=== PATIENT | female | born 1965 | race Caucasian/White ===

== ENCOUNTER 2017-05-23 13:06 | Outpatient (CLI) | payer BC ==
[2017-05-23 14:05] LABS: Bilirubin Negative (Negative); Blood, Urine Negative (Negative); Clarity CLEAR (Clear); Glucose, Urine (Dipstick) Negative (Negative); Leukocyte Negative (Negative); Nitrite Negative (Negative); Protein, Urine (Dipstick) Negative (Neg-Trace); Specific Gravity, Urine 1.008 (1.002-1.036); Urobilinogen 0.2 mg/dL (0.2-1.0); pH, Urine 6.5 (5.0-9.0)
[2017-05-23 14:06] LABS: Anion Gap 12 mmol/L (10-20); BUN (Urea Nitrogen) 8 mg/dL (9.8-20.1); Calc. Creatinine Clearance 0 mL/min (70-130); Carbon Dioxide 27 mmol/L (22-29); Chloride 105 mmol/L (98-107); Estimated GFR-MDRD 75; Glucose 94 mg/dL (70-105); Potassium 4.5 mmol/L (3.5-5.1); Sodium 139 mmol/L (136-145)
[2017-05-23 14:44] LABS: Bacteria/HPF None Seen HPF (None Seen); Hyaline Casts/LPF NONE SEEN LPF (0-3 Hyaline); RBC/HPF None Seen HPF (0-3); Squamous Epithelial 0-3 HPF (0-3); WBC/HPF 0-3 HPF (0-3)
--- NOTE | 2017-05-23 15:08 | RAD ---
AP ABDOMINAL RADIOGRAPH: Date: 05-23-17 History: Renal stone. Comparison: 10-10-16 FINDINGS: Again noted is the calcification overlying the inferior pole left renal shadow. No additional suspici ous calcifications are seen. Phlebolith overlie the lower aspect of the pelvis bilaterally. Bowel gas pattern is nonspecific. Mild degenerative changes are seen in the spine. IMPRESSION: Stable left nephrolithiasis. POS: [facility]
== END 2017-05-23 13:07 | disposition home or self-care (01) ==
LOC: RAD 13:06
PROVIDERS: ATTEND Urology
DX: N20.0 Calculus of kidney (principal)
CPT/HCPCS: 36415; 74018; 80048; 81001; 87086

== ENCOUNTER 2017-09-25 09:11 | Outpatient (CLI) | payer BC | END 2017-09-25 09:12 | disposition home or self-care (01) | LOC: BICMAMMO 09:11 | PROVIDERS: ATTEND Internal Medicine Medical Oncology | DX: Z08 Encounter for follow-up examination after completed treatment for malignant neoplasm (principal); Z85.3 Personal history of malignant neoplasm of breast | CPT/HCPCS: G0279 ==

== ENCOUNTER 2017-10-01 09:38 | Outpatient (CLI) | payer BC ==
--- NOTE | 2017-10-01 11:06 | RAD ---
AP ABDOMINAL RADIOGRAPH: DATE: 10/01/17. HISTORY: Renal stone. COMPARISON: 05/23/17. FINDINGS: There is a stable calcification overlying the inferior pole left renal shadow. No additional suspici ous calcifications are seen. Calcifications overlie the pelvis which are again likely related to phl eboliths. The bowel gas pattern is nonspecific. There has been no interval change from prior exam. IMPRESSION: Stable left nephrolithiasis. POS: [facility]
== END 2017-10-01 09:39 | disposition home or self-care (01) ==
LOC: RAD 09:38
PROVIDERS: ATTEND Internal Medicine Medical Oncology
DX: N20.0 Calculus of kidney (principal)
CPT/HCPCS: 74018; 80048; 81001; 87086

== ENCOUNTER 2017-12-24 09:02 | Outpatient (CLI) | payer BC | END 2017-12-24 09:03 | disposition home or self-care (01) | LOC: BICMAMMO 09:02 | PROVIDERS: ATTEND Internal Medicine Medical Oncology | DX: Z13.820 Encounter for screening for osteoporosis (principal); N95.9 Unspecified menopausal and perimenopausal disorder; C50.419 Malignant neoplasm of upper-outer quadrant of unspecified female breast | CPT/HCPCS: 77080 ==

== ENCOUNTER 2018-01-21 11:33 | Outpatient (CLI) | payer BC ==
--- NOTE | 2018-01-21 13:00 | RAD ---
ABDOMEN 1 VIEW: COMPARISON: 10/01/17. HISTORY: Renal calculi. FINDINGS: The previously noted calcification projects in the lower pole left kidney is less evident on the curr ent exam. Bowel gas pattern is nonspecific. Calcifications of the left and right hemipelvis are pre sumed to be phleboliths. IMPRESSION: No radiographic evidence of a calcification noted over the lower pole of the left kidney. POS: [facility]
== END 2018-01-21 11:34 | disposition home or self-care (01) ==
LOC: RAD 11:33
PROVIDERS: ATTEND Urology
DX: N20.0 Calculus of kidney (principal); N13.5 Crossing vessel and stricture of ureter without hydronephrosis
CPT/HCPCS: 74018

== ENCOUNTER 2018-03-06 10:56 | Outpatient (CLI) | payer BC ==
--- NOTE | 2018-03-06 13:56 | CT ---
NONCONTRAST ENHANCED CT IMAGES OF ABDOMEN AND PELVIS: HISTORY: Patient with a history of renal calculi. Current stone in the left kidney. Evaluation for interval change. FINDINGS: Noncontrast-enhanced CT images of the abdomen and pelvis were obtained. Comparison is made to a prev ious exam from 09/18/2016. The lung bases are unremarkable. No evidence of free intraperitoneal air seen. The liver, pancreas, and gallbladder are unremarkable. The spleen is stable with a calcified granulo ma seen. Adrenal glands unremarkable. No evidence of periaortic lymphadenopathy seen. No dilated loops of small bowel seen. The colon contains a moderate amount of stool. The right kidney is unremarkable with no evidence of masses or lesions or calculi. No evidence of hy dronephrosis seen. The left kidney demonstrates again a lower pole left renal calculus measuring approximately 7 x 5.5 m m. This is slightly larger than on the previous measurement where the same calculus measured approxi mately 3.9 x 7.0 mm. There continues to be some calyceal left-sided ureteral dilatation and prominen ce of the left renal pelvis. No definite evidence of left ureteral dilatation seen. Disk desiccation and disk space height loss and irregularity is seen involving the inferior end plate of L5 and superior end plate of S1. IMPRESSION: Slightly larger lower pole left renal calculus. No additional calculi seen. POS: [facility]
== END 2018-03-06 10:57 | disposition home or self-care (01) ==
LOC: BICCT 10:56
PROVIDERS: ATTEND Urology
DX: N20.0 Calculus of kidney (principal)
CPT/HCPCS: 74176

== ENCOUNTER 2018-03-25 06:05 | Day surgery (SDC) | payer BC ==
[2018-03-22 08:59] VITALS: BMI 24.0
[2018-03-25] MEDS ORDERED: Gentamicin 80 MG/2 ML VIAL ONE (06:34)
[2018-03-25] MEDS ORDERED: Bupivacaine/Epinephrine 0.25% 30 ML VIAL ONE ×2 (06:34)
[2018-03-25] MEDS ORDERED: Fentanyl 100 MCG/2 ML VIAL ONE ×3 (06:48→08:44)
[2018-03-25] MEDS ORDERED: Midazolam HCl 2 mg/2 ml Vial ONE (06:48)
[2018-03-25] MEDS ORDERED: Heparin 5,000 UNITS/ML VIAL ONE (07:14)
[2018-03-25] MEDS ORDERED: CEFAZOLIN 2 GM/50 ML BAG ONE (07:14)
--- NOTE | 2018-03-25 08:48 | OP ---
PREOPERATIVE DIAGNOSIS: Right breast cancer. POSTOPERATIVE DIAGNOSIS: Right breast cancer. PROCEDURE PERFORMED: Exchange of right tissue stress analyst for permanent breast prosthesis with capsular work ([id number]). OPERATIVE FINDINGS: Right breast implant. [place] reference #[id number], serial [id number]. OPERATIVE PROCEDURE: Following induction of adequate anesthesia, the patient was prepped and draped in the usual sterile fashion in the supine position. Her existing inframammary crease scar was incis ed. Dissection was carried sharply down through subcutaneous tissue to identify the underlying expan tracee, which was deflated and removed. The pocket was then opened from 2 o'clock to 12 o'clock to 10 o 'clock to accommodate the implant. The pocket was copiously irrigated and inspected for meticulous h emostasis prior to placing of a sizer to determine what implant would give the closest symmetry to th e expanded breast. The above was chosen. A skin barrier dressing was placed. The pocket was irriga татьяна with antibiotic solution as well as Betadine solution prior to placement of the above implant aft er donning fresh gloves. The pocket was reinspected for hemostasis prior to closure with 3-0 PDS sut ure followed by 3-0 Monocryl suture. The patient tolerated the procedure well.
[2018-03-25] MEDS ORDERED: HYDROcodone/Acetaminophen 5/325 mg Tablet ONE (09:44)
--- NOTE | 2018-03-26 08:48 | EKG ---
Test Reason : PREOP Blood Pressure : / mmHG Vent. Rate : 059 BPM Atrial Rate : 059 BPM P-R Int : 128 ms QRS Dur : 082 ms QT Int : 446 ms P-R-T Axes : 057 047 048 degrees QTc Int : 441 ms Sinus bradycardia Otherwise normal ECG No previous ECGs available Confirmed by DR. Oscar FLOR ([id number]) on 03/26/2018 8:48:18 AM Referred By: GARFIELD Confirmed By:DR. Oscar FLOR
== END 2018-03-25 10:41 | disposition home or self-care (01) ==
LOC: SDC 06:05
PROVIDERS: ATTEND Plastic Surgery
PROC: 0HPT0JZ Removal of Synthetic Substitute from Right Breast, Open Approach (ICD-10-PCS; principal; 2018-03-25)
PROC: 0HRT0JZ Replacement of Right Breast with Synthetic Substitute, Open Approach (ICD-10-PCS; principal; 2018-03-25)
DX: Z45.811 Encounter for adjustment or removal of right breast implant (principal); F17.210 Nicotine dependence, cigarettes, uncomplicated; I10 Essential (primary) hypertension; M19.90 Unspecified osteoarthritis, unspecified site; E66.3 Overweight; Z68.28 Body mass index [BMI] 28.0-28.9, adult; Z79.899 Other long term (current) drug therapy; Z88.2 Allergy status to sulfonamides; Z90.11 Acquired absence of right breast and nipple
CPT/HCPCS: 93005; 93010; 96374; J0131; J1580; J1644; J2250; J3010; J3370; J3490; L8600

== ENCOUNTER 2018-04-02 09:31 | Outpatient (CLI) | payer BC ==
[2018-04-02 10:57] LABS: Mean Corpuscular Hemoglobin 31.8 pg (27.0-31.0); Mean Corpuscular Volume 99.5 fL (78.0-98.0); Mean Platelet Volume 7.3 fL (7.4-10.4); Platelet Count 258 thou/uL (130-400); RBC Distribution Width 12.5 % (11.5-14.5); White Blood Cell (WBC) Count 6.5 thou/uL (4.8-10.8)
[2018-04-02 11:10] LABS: INR-International Normal Ratio 0.9; PTT 31.4 SEC (22.9-36.1); Prothrombin Time 11.9 SEC (12.0-14.7)
[2018-04-02 11:13] LABS: Anion Gap 12 mmol/L (10-20); BUN (Urea Nitrogen) 4 mg/dL (9.8-20.1); Calc. Creatinine Clearance 0 mL/min (70-130); Calcium 9.5 mg/dL (7.8-10.44); Carbon Dioxide 27 mmol/L (22-29); Chloride 105 mmol/L (98-107); Estimated GFR-MDRD 83; Glucose 86 mg/dL (70-105); Potassium 4.6 mmol/L (3.5-5.1); Sodium 139 mmol/L (136-145)
[2018-04-02 11:38] LABS: Bilirubin Negative (Negative); Blood, Urine Negative (Negative); Clarity CLEAR (Clear); Glucose, Urine (Dipstick) Negative (Negative); Leukocyte Negative (Negative); Nitrite Negative (Negative); Protein, Urine (Dipstick) Negative (Neg-Trace); Specific Gravity, Urine 1.007 (1.002-1.036); Urobilinogen 0.2 mg/dL (0.2-1.0); pH, Urine 6.5 (5.0-9.0)
[2018-04-02 11:46] LABS: Bacteria/HPF None Seen HPF (None Seen); Hyaline Casts/LPF 0-3 HYALINE CAST LPF (0-3 Hyaline); RBC/HPF 0-3 HPF (0-3); Squamous Epithelial None Seen HPF (0-3); WBC/HPF None Seen HPF (0-3)
== END 2018-04-02 09:32 | disposition home or self-care (01) ==
LOC: LABBT 09:31
PROVIDERS: ATTEND Urology
DX: Z01.812 Encounter for preprocedural laboratory examination (principal); N20.0 Calculus of kidney
CPT/HCPCS: 80048; 81001; 85027; 85610; 85730; 87086

== ENCOUNTER 2018-04-17 05:54 | Day surgery (SDC) | payer BC ==
[2018-04-02 09:54] VITALS: BMI 25.2
[2018-04-17] MEDS ORDERED: Levofloxacin 500 mg/D5W 100 ml Premix Bag ONE (06:25)
[2018-04-17] MEDS ORDERED: Iothalamate Meglumine 60% 50 ML VIAL FS ONE ×2 (07:05→08:14)
[2018-04-17] MEDS ORDERED: SUGAMMADEX SODIUM 500 MG/5 ML VIAL ONE (07:20)
[2018-04-17] MEDS ORDERED: Fentanyl 100 MCG/2 ML VIAL ONE ×4 (07:20→10:16)
[2018-04-17] MEDS ORDERED: Midazolam HCl 2 mg/2 ml Vial ONE (07:22)
--- NOTE | 2018-04-17 08:30 | RAD ---
SINGLE VIEW OF THE ABDOMEN: Comparison: 01-21-18, CT abdomen/pelvis 02-04-18 History: Pre-operative radiograph with left nephrolithiasis. FINDINGS: A single view of the abdomen shows a nonspecific, nonobstructive bowel gas pattern. A 6 mm calcificat ion projects over the left renal shadow. No calcification is projected over the right renal shadow or along the course of the ureters. IMPRESSION: Left nephrolithiasis. POS: [facility]
[2018-04-17] MEDS ORDERED: Phenazopyridine HCl 97.5 MG TABLET ONE (09:24)
[2018-04-17] MEDS ORDERED: Oxybutynin 5 MG TAB ONE (09:24)
[2018-04-17] MEDS ORDERED: Meperidine HCl/PF 25 MG/ML VIAL ONE (09:31)
--- NOTE | 2018-04-17 10:24 | RAD ---
RETROGRADE URETEROGRAM INTRAOPERATIVE FLUOROSCOPY: History: Left renal stone. FINDINGS/IMPRESSION: Intraoperative fluoroscopy was provided for retrograde study as performed by Dr. Lopez. Multipl e spot fluoroscopic images show catheterization and contrast opacification of a distended left renal collecting system. Filling defect is not reliably demonstrated. Final image shows double pigtail uret eral stent in good radiographic position. POS: [facility]
[2018-04-17] MEDS ORDERED: HYDROcodone/Acetaminophen 5/325 mg Tablet ONE (10:50)
[2018-04-17] MEDS ORDERED: PROPOFOL 200 MG/20 ML VIAL ONE (16:32)
[2018-04-17] MEDS ORDERED: Dexamethasone 20 MG/5 ML VIAL ONE (16:32)
[2018-04-17] MEDS ORDERED: Ondansetron PF 4 MG/2 ML Vial ONE (16:32)
[2018-04-17] MEDS ORDERED: Lidocaine 1% PF 5 ML VIAL ONE (16:32)
--- NOTE | 2018-04-19 06:28 | OP ---
DATE OF PROCEDURE: 04/17/2018 PREOPERATIVE DIAGNOSES: 1. A 52-year-old female with history of occult left ureteropelvic junction, no significant functional obstruction on Lasix renal scan with no accessory renal vasculature on workup. 2. Left lower pole 7 mm stone. History of punctate bilateral nonobstructing renal calculi. 3. History of breast cancer. 4. Grade 3 cystocele. POSTOPERATIVE DIAGNOSES: 1. A 52-year-old female with history of occult left ureteropelvic junction, no significant functional obstruction on Lasix renal scan with no accessory renal vasculature on workup. 2. Left lower pole 7 mm stone. History of punctate bilateral nonobstructing renal calculi. 3. History of breast cancer. 4. Grade 3 cystocele. PROCEDURES PERFORMED: Cystoscopy; left retrograde pyelogram; 6 x 24 double-J ureteral stent placement; balloon dilation of the left intramural ureter, balloon dilation of left UPJ; flexible ureteroscopy; pyeloscopy; laser lithotripsy of renal calculi. ANESTHESIA: General. SPECIMENS: None. DISPOSITION: To recovery room in stable condition. INTRAOPERATIVE FINDINGS: 1. Left lower pole stone. 2. Grade 3/4cystocele. 3. Left occult UPJ. 4. Chronically dilated renal pelvis. SPECIMENS: None. INDICATIONS FOR PROCEDURE AND HISTORY: Ms. Dailey is a pleasant 52-year-old female with history of breast cancer, who was initially referred to me by Dr. Baker due to incidental mild left hydronephrosis initially noted on bone scan, workup for breast cancer. She underwent the appropriate workup for UPJ. She has a remote history of ureteroscopy and stent placement in [place]. Workup for her UPJ demonstrated no significant functional obstruction with symmetric function as the left kidney demonstrates 56% function with T one-half for 14 minutes. IVP demonstrated symmetric uptake with excretion of contrast known to be down the course of the ureter. She has had no significant flank pain of concern. We have been observing her left renal stone, however, due to interval growth, she desired to proceed with workup. I informed the patient that ureteroscopy with retrograde pyelogram would be prudent. There was just concern regarding occult UPJ, which ESWL would hinder passage of stone fragmented debris, more over the stone in the lower pole. She desired to proceed with the procedure. Urine culture is negative. Risks and complications and indications were reviewed, including but not limited to bleeding, pain, infection, injury to adjacent organs, urosepsis, stricture formation, possible secondary procedure was reviewed with her in detail and she desired to proceed. DESCRIPTION OF PROCEDURE: After informed consent was signed, the patient was taken to the operating room and placed in a dorsal lithotomy position with the genital area prepped and draped in the usual surgical sterile fashion. Broad-spectrum antibiotics were provided. Bilateral PERRI hose and SCDs were placed. A 21- Chadian cystoscope was used. Physical exam demonstrates grade 3/4 cystocele, in which manual reduction of her cystocele was required to elevate her trigone required to intubate the left UO due to deviated trigone from the cystocele. A 5-Chadian open-ended catheter was utilized for retrograde pyelogram. This did demonstrate no evidence of filling defects. Retrograde pyelogram demonstrates an inferior insertion of the UPJ with chronically dilated renal pelvis. There was no discrete area of narrowing per se, however, the UPJ insertion appears to be mildly small in caliber. With distention of contrast, I was able to opacify without significant issues. A 0.35 Sensor wire was able to be passed into the left upper pole collecting system without difficulty. At this time, using a [employer] 4 cm 12-Chadian balloon dilator, we dilated the intramural ureter. We subsequently passed the balloon dilator to the level of the UPJ as well with the wire in situ. The balloon dilator was placed at the level of the UPJ and we subsequently dilated the UPJ with 4 cm [employer] balloon dilator. After appropriate pressure dilatation, the balloon was decompressed, and using a 10-Chadian dual-lumen access sheath, a second safety wire was placed with a 0.38 Super Stiff wire. I attempted to pass an 11/13-Chadian x 28 cm navigator; however, there was some resistance at the level of the sacral inlet, therefore I did not forcibly engage. We subsequently passed the flexible ureteroscope, a disposable scope over the Super Stiff wire and we were able to pass this to the level of the UPJ for staging. I attempted to pass the flexible ureteroscope to the level of the renal pelvis as we dilated the UPJ , however, this would not pass. Therefore, we re-staged the UPJ. There was no evidence of ureteral mucosal trauma. At this time, using the ureteroscopic access, a Passport dilator was utilized through the ureteroscope, and under direct visualization, I passed another balloon dilator and dilated it to 12-Chadian. Subsequently with some negotiation, I was able to pass the flexible ureteroscope over the Super Stiff safety wire. It required some manipulation, but we gently passed this to the level of the renal pelvis. Her access was quite challenging as her cystocele hinders the passage of the scope as there was deviated trigone resulting in deviated angle, therefore, I had to manually reduce her cystoceles to straighten the ureteroscope distally. With some manipulation, I was able to finally gain access to the renal pelvis. Deflection of the ureteroscope was difficult, likely due to tortuosity resulting from cystocele distally as well as UPJ component. I was able to see the lower pole stone; however, I could not get laser fiber into the lower pole as the scope would not deflect due to deviated angle from her trigone. We were able to basket extract the stone into a more amendable treatment to the level of the renal pelvis. I attempted to laser lithotripsy the stone with 200 micron laser fiber. I did not want to use a high-flow as the stone would move and migrate to a region that was not approachable at this time. Therefore, with minimal flow, using 200 micron fiber , we laser lithotripsied the stone. It did fragment into smaller fragments, however, they deflected out of the field into the other calices, in which I was unable to optimally access to the other calices. Decision was made to terminate the procedure at this time, I was unable to retrieve the stone, although laser lithotripsied, it is smaller in caliber. I do believe she has some residual stones left; however , I cannot deflect the scope to engage her calices to identify the migration of the stone fragments for safe retrieval. We assessed the UPJ, which demonstrated no evidence of ureteral mucosal perforation. There was a subtle mucosal flap in the proximal ureter at the level of L4; however, there was no evidence of extravasation of contrast. Retrograde pyelogram was to ensure that there was no extravasation of contrast. Previous fluoroscopy did demonstrate pyelovenous backflow, this was not consistent with a perforation. I surveyed the ureter, which demonstrated no other stone nidus of concern. A 6 x 24 double-J ureteral stent was passed without difficulty. She will follow up with me next Wednesday with a KUB to assess the degree of residual stone burden. I would minimally recommend few weeks due to dilatation of her UPJ. Pending KUB, I would discuss with her regarding restaging ureteroscopy to retrieve residual stone nidus versus stent pull. She was discharged with Colace #30 100 mg one p.o. b.i.d., VESIcare 5 mg one p.o. daily #30, ciprofloxacin 500 mg for five days, Azo p.r.n. [place] 09/13/24. KUB to be obtained 1 hour prior to her appointment. Job ID: [id number] [facility]
== END 2018-04-17 12:58 | disposition home or self-care (01) ==
LOC: SDC 05:54
PROVIDERS: ATTEND Urology
PROC: 0T778DZ Dilation of Left Ureter with Intraluminal Device, Via Natural or Artificial Opening Endoscopic (ICD-10-PCS; principal; 2018-04-17)
PROC: 0TF48ZZ Fragmentation in Left Kidney Pelvis, Via Natural or Artificial Opening Endoscopic (ICD-10-PCS; principal; 2018-04-17)
DX: N20.0 Calculus of kidney (principal); N13.5 Crossing vessel and stricture of ureter without hydronephrosis; N81.10 Cystocele, unspecified; E78.5 Hyperlipidemia, unspecified; M19.90 Unspecified osteoarthritis, unspecified site; F41.9 Anxiety disorder, unspecified; Z85.3 Personal history of malignant neoplasm of breast; Z79.811 Long term (current) use of aromatase inhibitors; Z79.899 Other long term (current) drug therapy; Z88.2 Allergy status to sulfonamides
CPT/HCPCS: 74018; 74420; 96374; C1758; C1769; J1100; J1956; J2001; J2175; J2250; J2405; J2704; J3010; Q9961

== ENCOUNTER 2018-04-24 11:54 | Outpatient (CLI) | payer BC ==
--- NOTE | 2018-04-24 13:53 | RAD ---
ABDOMEN 1 VIEW: HISTORY: Renal stone. COMPARISON: 04/17/2018. FINDINGS: Visualized bowel gas pattern is nonspecific. Double pigtail stent overlies the course of the left ur eter. Small irregular calcification overlying the inferior pole of the left renal shadow is unchange d in position and appearance. Phleboliths project over the pelvis. IMPRESSION: 1. Left ureteral stent is in good radiographic position. 2. Left renal calculus appears stable. POS: [facility]
== END 2018-04-24 11:55 | disposition home or self-care (01) ==
LOC: RAD 11:54
PROVIDERS: ATTEND Urology
DX: N20.0 Calculus of kidney (principal); Z96.0 Presence of urogenital implants
CPT/HCPCS: 74018

== ENCOUNTER 2018-04-25 13:54 | Outpatient (CLI) | payer BC ==
[2018-04-25 14:42] LABS: Hemoglobin 14.8 g/dL (12.0-16.0); Mean Corpuscular HGB CONC 32.9 g/dL (32.0-36.0); Mean Corpuscular Hemoglobin 32.8 pg (27.0-31.0); Mean Corpuscular Volume 99.5 fL (78.0-98.0); Mean Platelet Volume 7.3 fL (7.4-10.4); Platelet Count 316 thou/uL (130-400); RBC Distribution Width 12.1 % (11.5-14.5); White Blood Cell (WBC) Count 7.3 thou/uL (4.8-10.8)
[2018-04-25 14:49] LABS: Bilirubin Negative (Negative); Blood, Urine Large (Negative); Clarity CLOUDY (Clear); Glucose, Urine (Dipstick) Negative (Negative); INR-International Normal Ratio 0.9; Leukocyte Large (Negative); Nitrite Negative (Negative); PTT 30.6 SEC (22.9-36.1); Protein, Urine (Dipstick) 30 mg/dL (Neg-Trace); Prothrombin Time 12.3 SEC (12.0-14.7); Specific Gravity, Urine 1.007 (1.002-1.036); Urobilinogen 0.2 mg/dL (0.2-1.0); pH, Urine 6.5 (5.0-9.0)
[2018-04-25 14:56] LABS: Bacteria/HPF None Seen HPF (None Seen); Hyaline Casts/LPF 0-3 HYALINE CAST LPF (0-3 Hyaline); Pathc Cast-AUWi Flag 0.29 (0-2.49); RBC/HPF 21-50 HPF (0-3); Squamous Epithelial 0-3 HPF (0-3)
[2018-04-25 15:09] LABS: Anion Gap 13 mmol/L (10-20); BUN (Urea Nitrogen) 5 mg/dL (9.8-20.1); Calc. Creatinine Clearance 0 mL/min (70-130); Calcium 9.8 mg/dL (7.8-10.44); Carbon Dioxide 26 mmol/L (22-29); Chloride 106 mmol/L (98-107); Estimated GFR-MDRD 82; Glucose 87 mg/dL (70-105); Potassium 4.1 mmol/L (3.5-5.1); Sodium 141 mmol/L (136-145)
== END 2018-04-25 13:55 | disposition home or self-care (01) ==
LOC: LABBT 13:54
PROVIDERS: ATTEND Urology
DX: Z01.818 Encounter for other preprocedural examination (principal); N20.0 Calculus of kidney; C50.919 Malignant neoplasm of unspecified site of unspecified female breast; N81.10 Cystocele, unspecified; N13.5 Crossing vessel and stricture of ureter without hydronephrosis
CPT/HCPCS: 80048; 81001; 85027; 85610; 85730; 87086; 93005; 93010

== ENCOUNTER 2018-05-01 05:45 | Day surgery (SDC) | payer BC ==
[2018-04-25 14:34] VITALS: BMI 25.6
[2018-05-01] MEDS ORDERED: Levofloxacin 500 mg/D5W 100 ml Premix Bag ONE (06:54)
[2018-05-01] MEDS ORDERED: Fentanyl 100 MCG/2 ML VIAL ONE ×4 (06:59→10:40)
--- NOTE | 2018-05-01 08:28 | RAD ---
ABDOMEN ONE VIEW: HISTORY: A 53-year-old female for preoperative evaluation. COMPARISON: 04/24/2018 FINDINGS: Left ureteral stent in place. Left lower pole renal calculus or small adjacent calculi. No bowel ob struction. IMPRESSION: 1. Stable kidneys, ureters, and bladder. 2. Left renal calculus. 3. Left ureteral stent. POS: [facility]
[2018-05-01] MEDS ORDERED: HYDROcodone/Acetaminophen 5/325 mg Tablet ONE (12:16)
--- NOTE | 2018-05-01 13:13 | OP ---
DATE OF PROCEDURE: 05/01/2018 PREOPERATIVE DIAGNOSES: Ms. Dailey is a 53-year-old female with history of left occult ureteropelvic junction with lower pole stone measuring 7 mm, status post left retrograde, ureteroscopy, balloon dilatation of the ureteropelvic junction, ureteroscopy, laser lithotripsy of lower pole stone. POSTOPERATIVE DIAGNOSES: Ms. Dailey is a 53-year-old female with history of left occult ureteropelvic junction with lower pole stone measuring 7 mm, status post left retrograde, ureteroscopy, balloon dilatation of the ureteropelvic junction, attempted ureteroscopy, laser lithotripsy of lower pole stone. PROCEDURE PERFORMED: Left extracorporeal shock wave lithotripsy. ANESTHESIA: LMA. COMPLICATIONS: None apparent. DISPOSITION: To recovery room in stable condition. INDICATIONS FOR PROCEDURE AND HISTORY: Ms. Dailey is a pleasant 53-year-old female with history of breast cancer, with incidental mild left hydronephrosis noted on bone scan. She underwent workup with CT angiogram, IVP Lasix, renal scan demonstrating no significant functional obstruction of concern. However, due to interval enlargement of her left lower pole stone, she desired to proceed with ureteroscopy, laser lithotripsy. We did discuss options of ESWL versus ureteroscopy, laser lithotripsy, however, she does have occult UPJ, staging of the UPJ was advised. She underwent dilation of the UPJ, underwent ureteral stent placement. Although, I was able to see the stone; however, due to tortuosity, the ureteroscope hindered by her significant cystocele and a lower pole stone moiety , I was unable to reach the stone for successful , laser lithotripsy. Therefore, she presents today for ESWL. Risks and complications and indications were reviewed including, but not limited to, bleeding, pain, infection, injury to adjacent organs, urosepsis, significant hematuria of concern. All questions were answered to her satisfaction. She desired to proceed. DESCRIPTION OF PROCEDURE: The patient was taken to the operating room, placed in a supine position. Preop KUB demonstrates again a left lower pole stone consistent with an acute infundibular angle from the ureteral stent at 45 degrees. The stone was easily visualized on fluoroscopy and using a Dornier lithotripter, we fragmented the stone using energy of 4, rate increased from 60 to 80 slowly, 2500 shocks were delivered. We intermittently fluoro'd the patient demonstrating adequate localization of shockwave, more over successful dispersion. At the end of the procedure, stone appeared to be well dispersed. She will follow up in my clinic on May 16 for stent pull under local. She was advised to obtain a KUB one day prior on May 15. She was discharged with [place] 5/325 #30, ciprofloxacin 1 p.o. b.i.d. x3 days to start one day prior to her stent pull, Azo p.r.n., Colace, and oxybutynin refill was provided. Job ID: [id number] [facility]
== END 2018-05-01 12:43 ==
LOC: SDC 05:45
PROVIDERS: ATTEND Urology
PROC: 0TF4XZZ Fragmentation in Left Kidney Pelvis, External Approach (ICD-10-PCS; principal; 2018-05-01)
DX: N20.0 Calculus of kidney (principal); N13.5 Crossing vessel and stricture of ureter without hydronephrosis; N81.10 Cystocele, unspecified; M19.90 Unspecified osteoarthritis, unspecified site; I10 Essential (primary) hypertension; E78.5 Hyperlipidemia, unspecified; F41.9 Anxiety disorder, unspecified; F17.210 Nicotine dependence, cigarettes, uncomplicated; Z85.3 Personal history of malignant neoplasm of breast; Z79.811 Long term (current) use of aromatase inhibitors; Z79.899 Other long term (current) drug therapy; Z88.2 Allergy status to sulfonamides; Z98.890 Other specified postprocedural states
CPT/HCPCS: 74018; 96374; J1956; J3010

== ENCOUNTER 2018-05-16 07:51 | Outpatient (CLI) | payer BC ==
--- NOTE | 2018-05-16 08:31 | RAD ---
AP ABDOMINAL RADIOGRAPH; Date: 05/16/18 HISTORY: Renal stone. COMPARISON: 05/11/18. FINDINGS: A double pigtail left ureteral stent remains in place, proximal portion overlying expected location of the left renal collecting system, distal portion overlying expected location of the urinary bladde r. The previously noted calculus overlying the inferior pole left renal shadow on prior exam is not d efinitely seen on this exam. No suspicious calcifications are seen along the course of the left urete ral stent. Phleboliths do overlie the pelvis. Bowel gas pattern is nonspecific. IMPRESSION: 1. Left ureteral stent in place. 2. Previously seen calculus overlying lower pole left renal collecting system is not readily identif ied on this examination; however, majority of renal shadow is obscured by bowel gas. No calculus is s een along the course of the left ureter. POS: [facility]
== END 2018-05-16 07:52 | disposition home or self-care (01) ==
LOC: RAD 07:51
PROVIDERS: ATTEND Urology
DX: N20.0 Calculus of kidney (principal); Z96.0 Presence of urogenital implants
CPT/HCPCS: 74018

== ENCOUNTER 2018-06-21 09:23 | Outpatient (CLI) | payer BC ==
--- NOTE | 2018-06-21 14:29 | NM ---
BONE SCAN: HISTORY: Malignant neoplasm of breast diagnosed in 2017. DOSE: 30.2 mCi of Technetium 99m-MDP. FINDINGS: Anterior and posterior whole body delayed images obtained. Images demonstrate some pooling of the radioisotope in the left renal collecting system compatible wi th UPJ-type obstruction. This was seen on the patient's previous CT from 03/06/2018. No significant areas of increased activity seen to suggest metastatic disease. Some activity is seen in the left jaw possibly representing dental work. IMPRESSION: No evidence of metastatic disease seen. POS: [facility]
== END 2018-06-21 09:24 | disposition home or self-care (01) ==
LOC: NM 09:23
PROVIDERS: ATTEND Internal Medicine Medical Oncology
DX: C50.919 Malignant neoplasm of unspecified site of unspecified female breast (principal); M54.6 Pain in thoracic spine
CPT/HCPCS: 78306; A9503

== ENCOUNTER 2018-09-03 07:09 | Outpatient (CLI) | payer BC ==
--- NOTE | 2018-09-03 09:25 | MRI ---
MRI LUMBAR SPINE WITH CONTRAST: HISTORY: Pain. History of breast cancer. COMPARISON: Reference is made to recent bone scan 06/21/2018 FINDINGS: Conus medullaris is normal in morphology and terminates at the L1 level. Multilevel mild bilateral degenerative facet hypertrophy is present. L1-2:Mild effacement of ventral thecal sac, due to disc osteophyte complex. Foramina are maintained L2-3:Mild effacement of ventral thecal sac due to disc osteophyte formation. Foramina are maintained L3-4:Mild central canal stenosis due to broad-based disc osteophyte. Minimal narrowing of each neural foramen L4-5:Mild effacement of ventral thecal sac due to disc osteophyte. No significant foraminal stenosis L5-S1:Disc degeneration with endplate irregularity and disc space height loss, and resultant broad-ba sed disc osteophyte which effaces ventral thecal sac and crowds the traversing right S1 nerve root. Mild bilateral neural foraminal stenosis There is no pathologic mass-producing enhancement of the vertebral canal. Multilevel Schmorl's node f ormation. Nonenhancing T2 hyperintense focus of the L4 vertebral body likely relates to degenerative edema IMPRESSION: 1. Multilevel degenerative change of lumbar spine. 2. No evidence of metastatic disease of lumbar spine. Transcribed Date/Time: 09/03/2018 9:59 AM
--- NOTE | 2018-09-03 10:02 | MRI ---
MRI THORACIC SPINE WITH AND WITHOUT CONTRAST: Multiplanar, multisequential imaging thoracic spine obtained. INDICATION: Breast cancer. Back pain. FINDINGS: Thoracic vertebrae maintain normal height and alignment. Vertebral body signal is normal. There is no abnormal enhancement. There is no evidence of thoracic spine metastasis. There is a small focal disk protrusion centrally at T4-T5 which indents the anterior thecal sac. No significant cord impingement. Minimal disk bulge seen at T6-T7 and T7-T8. No other significant bulge or protrusion seen. Cord sig nal is normal. No central canal stenosis. IMPRESSION: 1. Small central disk protrusion at T4-T5 indents the anterior thecal sac as described. 2. MRI thoracic spine, otherwise, unremarkable. No evidence of vertebral body metastasis. POS: [facility]
== END 2018-09-03 07:10 | disposition home or self-care (01) ==
LOC: MRI 07:09
PROVIDERS: ATTEND Internal Medicine Medical Oncology
DX: C50.419 Malignant neoplasm of upper-outer quadrant of unspecified female breast (principal); M54.6 Pain in thoracic spine; M51.24 Other intervertebral disc displacement, thoracic region; M47.816 Spondylosis without myelopathy or radiculopathy, lumbar region
CPT/HCPCS: 72157; 72158

== ENCOUNTER 2019-05-09 07:29 | Outpatient (CLI) | payer BC ==
--- NOTE | 2019-05-09 09:45 | CT ---
CT OF THE ABDOMEN AND PELVIS WITH AND WITHOUT IV CONTRAST: INDICATION: A 54-year-old female with a history of breast cancer, right mastectomy and chemotherapy, and a histor y of a BRCA2 mutation. Screening evaluation for cancer of the ovary and pancreas. COMPARISON: Prior CT of the abdomen and pelvis without contrast dated 03/06/2018 and 09/18/2016. FINDINGS: There is a stable calcified granuloma in the right lower lobe. There is a calcified lymph node seen within the right infrahilar region. There is a very tiny arterially enhancing lesion within segment 6 of the right hepatic lobe on image 33 of series 4, measuring 5 mm. This is isodense to the liver on the precontrast and the venous phas e contrast study suspicious for a tiny capillary hemangioma; however, this is not completely characte rized on the current study due to its size. The pancreas, adrenal glands, and right kidney are normal-appearing. There is a small calcified gran uloma within the spleen. There is a tiny 5 mm hypodensity seen within the left mid kidney suspicious for a very tiny cyst. The left kidney is also slightly malrotated which is a normal variant. There are mild vascular calcifications involving the abdominal aorta. No retroperitoneal lymphadenop athy is evident. The unopacified large and small bowel are of normal caliber-appearing. The bladder, reproductive str uctures, rectum, and perirectal soft tissues are unremarkable-appearing. No suspicious lymphadenopathy is evident within the pelvis. No free fluid is evident. There is scattered degenerative and osteoarthritic change. No definite acute osseous abnormality is evident. No suspicious osteolytic or osteoblastic lesion is identified. IMPRESSION: 1. No overt evidence to suggest metastatic disease within the abdomen or pelvis. No primary maligna ncy is grossly evident within the region of the pancreas or reproductive structures. 2. 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 No additional focal hepatic lesion is evident. As a conservative measure, a followup exam ination utilizing a multiphase CT examination of the abdomen and pelvis may be helpful in 3-6 months to document stability. 3. Suspected left renal cyst. 4. Findings of prior granulomatous disease. POS: [facility]
== END 2019-05-09 07:30 | disposition home or self-care (01) ==
LOC: BICCT 07:29
PROVIDERS: ATTEND Internal Medicine Medical Oncology
DX: C50.419 Malignant neoplasm of upper-outer quadrant of unspecified female breast (principal); D71 Functional disorders of polymorphonuclear neutrophils; K76.9 Liver disease, unspecified
CPT/HCPCS: 74178

== ENCOUNTER 2019-10-02 06:41 | Outpatient (CLI) | payer BC, OTHER ==
--- NOTE | 2019-10-02 16:32 | RAD ---
TWO VIEWS CHEST: 10/02/19 PROVIDED CLINICAL HISTORY: Preop. FINDINGS: Comparison 07/14/16. Cardiac and mediastinal silhouette is within normal limits. Left subclavian implanted port is redemon strated in similar position. Surgical clips are seen overlying the right axilla. No focal consolidati on, pleural fluid or pneumothorax apparent. IMPRESSION: No evidence for an acute cardiopulmonary process. POS: [facility]
[2019-10-02 17:27] LABS: Anion Gap 11 mmol/L (10-20); BUN (Urea Nitrogen) 6 mg/dL (9.8-20.1); Calc. Creatinine Clearance 0 mL/min (70-130); Calcium 9.4 mg/dL (7.8-10.44); Carbon Dioxide 28 mmol/L (22-29); Chloride 104 mmol/L (98-107); Estimated GFR-MDRD 79; Glucose 89 mg/dL (70-105); Potassium 3.8 mmol/L (3.5-5.1); Sodium 139 mmol/L (136-145)
[2019-10-03 11:07] LABS: SARS-CoV-2 MS2 Positive; SARS-CoV-2 N Gene Negative; SARS-CoV-2 S Gene Negative; SARS-CoV-2 orf1ab Negative
--- NOTE | 2019-10-10 23:24 | EKG ---
Test Reason : Blood Pressure : / mmHG Vent. Rate : 068 BPM Atrial Rate : 068 BPM P-R Int : 120 ms QRS Dur : 080 ms QT Int : 384 ms P-R-T Axes : 076 081 064 degrees QTc Int : 408 ms Normal sinus rhythm with sinus arrhythmia Normal ECG When compared with ECG of 25-APR-2018 14:22, No significant change was found Confirmed by Lori MACK ([id number]) on 10/10/2019 11:23:43 PM Referred By: MARNIE Confirmed By:Lori MACK
== END 2019-10-02 06:42 | disposition home or self-care (01) ==
LOC: LABBT 06:41
PROVIDERS: ATTEND Obstetrics & Gynecology
DX: Z01.818 Encounter for other preprocedural examination (principal); Z11.59 Encounter for screening for other viral diseases
CPT/HCPCS: 71046; 80048; 87635; 93005; 93010; U0003